=== PATIENT | female | born 1985 | race Caucasian/White ===

== ENCOUNTER 2017-01-12 11:43 | Inpatient (IN) | payer OTHER ==
[~2017-01-12] VITALS: Ht 160 cm; Wt 75.3 kg
[~2017-01-12 11:43] MED LIST: PREN1TAB48 PO
--- NOTE | 2017-01-12 11:45 | NUR ---
AAOX3, CAME TO ER C/O RIGHT SIDED CHEST PAIN RADIATES TO HER BACK, NO TRAUMA, ALSO C/O SOB X 2 HRS AGO. SKIN IS WARM AND NON DIAPHORETIC. RESP IS EVEN AND UNLABORED WITH NAD NOTED. PATIENT DESCRIBED THE PAIN LIKE A STABBING PAIN. PLACED ON MONITOR. AWAITING MD FOR EVAL.
--- NOTE | 2017-01-12 12:09 | NUR ---
IV ACCESSED TO RAC 20.
[2017-01-12] MEDS ORDERED: KETOROLAC TROMETHAMINE INJ 30 MG/ML VIAL ONE (12:22)
[2017-01-12] MEDS ORDERED: KETOROLAC TROMETHAMINE INJ 30 MG/ML VIAL IV ONE (12:30)
--- NOTE | 2017-01-12 12:45 | NUR ---
MACHINE SETTER AND REPAIRER AT BEDSIDE BLOOD SAMPLE COLLECTED
[2017-01-12 12:57] LABS: BASOPHILS % (AUTO) 0.4 % (0.0-2.0); EOSINOPHILS # (AUTO) 0.1 /CMM (0.0-0.7); EOSINOPHILS % (AUTO) 0.8 % (0.0-6.0); HEMATOCRIT 41 % (33-45); HEMOGLOBIN 13.6 g/dL (11.5-14.8); LYMPHOCYTES # (AUTO) 2.3 /CMM (0.8-4.8); LYMPHOCYTES % (AUTO) 23.3 % (20.0-44.0); MEAN CORPUSCULAR HEMOGLOBIN 26 PG (26.0-33.0); MEAN CORPUSCULAR HGB CONC 33 g/dl (31.0-36.0); MEAN CORPUSCULAR VOLUME 80 fL (82-100); MONOCYTES # (AUTO) 0.7 /CMM (0.1-1.30); MONOCYTES % (AUTO) 7.1 % (2.0-12.0); NEUTROPHILS # (AUTO) 6.6 /CMM (1.8-8.9); NEUTROPHILS % (AUTO) 68.4 % (43.0-81.0); PLATELET COUNT (AUTO) 277 /CMM (150-450); RDW COEFFICIENT OF VARIATION 11.8 (11.5-15.0); RED BLOOD CELL COUNT(AUTO) 5.19 MIL/uL (4.0-5.2); WHITE BLOOD COUNT (AUTO) 9.7 K/uL (4.3-11.0)
[2017-01-12 13:03] LABS: CALCIUM, SERUM 9.1 mg/dL (8.5-10.1); CARBON DIOXIDE 32 mmol/L (21-32); CHLORIDE 101 mmol/L (98-107); CREATININE 0.6 mg/dL (0.6-1.3); GFR 116 mL/min (>60); GLUCOSE 110 mg/dL (74-106); SODIUM SERUM 138 mmol/L (136-145); UREA NITROGEN, BLOOD 11 mg/dL (7-18)
[2017-01-12 13:06] LABS: INR 1.08 (0.87-1.13); PROTHROMBIN TIME 11.2 SECS (9.5-12.7)
[2017-01-12 13:09] LABS: ALANINE AMINOTRANSFERASE 27 U/L (12-78); ALBUMIN 3.9 g/dL (3.4-5.0); ALKALINE PHOSPHATASE 57 U/L (46-116); ASPARTATE AMINOTRANSFERASE 15 U/L (15-37); BILIRUBIN,DIRECT 0.1 mg/dL (0.0-0.2); BILIRUBIN,TOTAL 0.3 mg/dL (0.2-1.0); TOTAL PROTEIN, SERUM 7.6 g/dL (6.4-8.2)
[2017-01-12 13:11] LABS: TROPONIN I < 0.017 ng/mL (0.00-0.056)
[2017-01-12 13:39] LABS: D-DIMER 0.58 mg/L(FEU (0.17-0.50)
[2017-01-12] MEDS ORDERED: IV NS 0.9% 250 ML IV ONE (13:52)
[2017-01-12] MEDS ORDERED: IOHEXOL-350 100 ML VIAL IV ONE (13:52)
[2017-01-12] MEDS ORDERED: CT SWABBABLE VALVE TRANS SET 1 EA INFUS.SET MC ONE (13:53)
--- NOTE | 2017-01-12 14:46 | NUR ---
CALLED [facility], DR. NUÑEZ WAS PAGED
--- NOTE | 2017-01-12 14:46 | NUR ---
CALLED NURSING GAS TRUCK DRIVER FOR TELE BED
--- NOTE | 2017-01-12 14:51 | NUR ---
PATIENT GOING TO 119-1
[2017-01-12] MEDS ORDERED: RIVAROXABAN 10 MG TABLET PO STA (14:52)
--- NOTE | 2017-01-12 14:58 | NUR ---
GAVE REPORT TO [facility] TELE ROOM 119-1 DR NUÑEZ ADMITTING. PE DX. TRANSFER VIA ACLS PROTOCOL
--- NOTE | 2017-01-12 15:00 | NUR ---
RN ADMITTING NOTES: Rec'd report from RAMOS Duncan RN. Pt admitted under Telemetry (room 119/1), came in the unit via gurney accompanied by ER staff. Pt A/O x4 c/o SOB & chest tightness. Dr. Copeland made aware w/ orders & carried out. Placed on O2 at 2lpm/ NC, saturating at 99%. On telemonitor, SR w/ HR 68 bpm. Pt is ambulatory. Skin is intact. Has R AC G20, SL, flushed, patent & intact w/ no signs of infection / infiltration noted. Routine admission done. Pt oriented on room. Call light placed w/in reach. Bed kept low & in locked position. Needs attended. Will continue to monitor.
[2017-01-12 16:00] VITALS: BP 112/65
[2017-01-12] MEDS ORDERED: ONDANSETRON HCL/PF 4 MG/2 ML VIAL IVP PRN (16:30)
[2017-01-12] MEDS ORDERED: MAGNESIUM HYDROXIDE 30 ML UDC PO PRN (16:30)
[2017-01-12] MEDS ORDERED: ACETAMINOPHEN 325 MG TABLET PO PRN (16:30)
[2017-01-12] MEDS ORDERED: MAG HYDROX/AL HYDROX/SIMETH 30 ML UDC PO PRN (16:30)
[2017-01-12] MEDS ORDERED: ZOLPIDEM TARTRATE 5 MG TABLET PO PRN (16:30)
[2017-01-12] MEDS ORDERED: Z GUARD REMEDY 2 OZ OINT TP PRN (16:30)
[2017-01-12] MEDS ORDERED: IV SET PRIMARY PUMP SET 1 EA INFUS.SET MC ONE (17:07)
[2017-01-12] MEDS: BLOOD SUGAR DIAGNOSTIC 1 EACH STRIP IN SCH ×2 (17:34→22:19)
[2017-01-12] MEDS: IV D5/0.45 NACL 1,000 ML IV PRN (17:34)
[2017-01-12] MEDS ORDERED: BLOOD SUGAR DIAGNOSTIC 1 EACH STRIP IN SCH (18:00)
--- NOTE | 2017-01-12 19:40 | NUR ---
ATOMIC PROCESS ENGINEER INITIAL NOTE PT RECEIVED IN BED WITH FAMILY AT BEDSIDE. A/O X4 AND ABLE TO MAKE NEEDS KNOWN. TELE- SINUS RHYTHM. ON ROOM AIR AND SATING WELL. IV SITE INTACT, CLEAN AND PATENT. IV FLUIDS RUNNING AND WELL TOLERATED. CALL LIGHT WITHIN REACH. WILL CONTINUE TO MONITOR.
--- NOTE | 2017-01-12 19:51 | NUR ---
RN CLOSING NOTES: No acute changes noted w/in shift. Needs attended. Kept well rested. Call light w/in reach. Endorsed to PM RN for MACEY.
[2017-01-12 19:57] LABS: APPEARANCE,URINE CLEAR (CLEAR); BILIRUBIN,URINE NEGATIVE (NEGATIVE); BLOOD, URINE NEGATIVE Ery/uL (NEGATIVE); COLOR,URINE YELLOW (YELLOW); KETONES,URINE NEGATIVE (NEGATIVE); LEUKOCYTE ESTERASE ,URINE NEGATIVE (NEGATIVE); NITRITE, URINE NEGATIVE (NEGATIVE); PROTEIN,URINE NEGATIVE (NEGATIVE); UGLUCOSE NEGATIVE (NEGATIVE); UROBILINOGEN,URINE 0.2 EU/dL (0.2)
[2017-01-12 20:00] VITALS: BP 119/69
[2017-01-13] VITALS (7 sets, daily range): BP systolic 110–122; BP diastolic 60–78
[2017-01-13] MEDS: HYDROCODONE/APAP 5/325MG 1 EACH TABLET PO PRN ×3 (01:50→22:30)
[2017-01-13] MEDS: IV D5/0.45 NACL 1,000 ML IV PRN ×2 (06:38→21:23)
[2017-01-13] MEDS: BLOOD SUGAR DIAGNOSTIC 1 EACH STRIP IN SCH ×4 (06:38→21:22)
[2017-01-13 07:04] LABS: BASOPHILS % (AUTO) 0.3 % (0.0-2.0); EOSINOPHILS # (AUTO) 0.1 /CMM (0.0-0.7); EOSINOPHILS % (AUTO) 0.9 % (0.0-6.0); HEMATOCRIT 39 % (33-45); HEMOGLOBIN 12.9 g/dL (11.5-14.8); LYMPHOCYTES % (AUTO) 28.5 % (20.0-44.0); MEAN CORPUSCULAR HEMOGLOBIN 27 PG (26.0-33.0); MEAN CORPUSCULAR HGB CONC 33 g/dl (31.0-36.0); MEAN CORPUSCULAR VOLUME 81 fL (82-100); MONOCYTES # (AUTO) 0.6 /CMM (0.1-1.30); MONOCYTES % (AUTO) 5.7 % (2.0-12.0); NEUTROPHILS # (AUTO) 6.9 /CMM (1.8-8.9); NEUTROPHILS % (AUTO) 64.6 % (43.0-81.0); PLATELET COUNT (AUTO) 278 /CMM (150-450); RDW COEFFICIENT OF VARIATION 13.1 (11.5-15.0); RED BLOOD CELL COUNT(AUTO) 4.87 MIL/uL (4.0-5.2); WHITE BLOOD COUNT (AUTO) 10.7 K/uL (4.3-11.0)
--- NOTE | 2017-01-13 07:20 | NUR ---
ADMINISTRATIVE VOLUNTEER CLOSING NOTE PT REMAINED STABLE DURING SHIFT. ALL NEEDS ATTENDED TO PROMPTLY. CALL LIGHT WITHIN EASY REACH AT ALL TIMES. WILL ENDORSE TO NEXT SHIFT FOR MACEY.
[2017-01-13 07:27] LABS: ALBUMIN 3.3 g/dL (3.4-5.0); BILIRUBIN,TOTAL 0.2 mg/dL (0.2-1.0); CALCIUM, SERUM 8.4 mg/dL (8.5-10.1); CREATININE 0.6 mg/dL (0.6-1.3); MAGNESIUM 1.9 mg/dL (1.8-2.4); PHOSPHORUS 4.5 mg/dL (2.5-4.9); TOTAL PROTEIN, SERUM 6.7 g/dL (6.4-8.2)
--- NOTE | 2017-01-13 07:30 | NUR ---
RN NOTES RECEIVED PT RESTING IN BED COMFORTABLY, AWAKE ALERT ORIENTEDX4 ABLE TO COMMUNICATE NEEDS. SR ON TELE MONITOR, PT VERBALIZED SHE HAS CHEST PAIN 7/10 BUT PREFERS TO TAKE NORCO IN A LITTLE BIT. ONGOING IVF D51/F NS@75ML/HR INFUSING ON R AC. REMINDED TO USE CALL LIGHT NEEDED, SAFETY MAINTAINED, NEEDS ATTENDED. CALL LIGHT WITHIN REACH, WILL CONTINUE TO MONITOR
[2017-01-13] MEDS: PANTOPRAZOLE 40 MG TABLET.DR PO SCH (08:32)
--- NOTE | 2017-01-13 10:03 | NUR ---
RN NOTES PT HAS C/O CHEST PAIN PS 04/10, AND PT IS REQUESTING IF SHE CAN HAVE A SHOWER. CALLED DR NUÑEZ, SPOKE WITH DR NUÑEZ, REPORTED PT HAVING CHEST PAIN AND REQUEST TO SHOWER. PER MD PT OK TO SHOWER, AND MORPHINE 2MG Q6H PRN. ORDERS READ BACK NOTED AND CARRIED OUT.
[2017-01-13] MEDS ORDERED: MORPHINE SULFATE INJ 2 MG/ML DISP.SYRIN IV PRN (10:30)
[2017-01-13] MEDS: RIVAROXABAN 10 MG TABLET PO SCH (16:39)
--- NOTE | 2017-01-13 19:15 | NUR ---
RN CLOSING NOTES: No acute changes noted w/in shift. Needs Addressed. pt ambulated per Md order to the shower without issue. Call light w/in reach. Endorsed to PM RN for Continuation of care.
--- NOTE | 2017-01-13 20:00 | NUR ---
AIRPORT RAMP SUPERVISOR NOTES RECEIVED PT IN BED, AWAKE, A/O X4. FAMILY AT BEDSIDE. TELE READS SR AT 90 BPM. ON ROOM AIR, RITA WELL. PT IS AMBULATORY, DENIES PAIN. RAC 20G IV, RUNNING D5 1/2 NS AT 75 ML/HR. CALL LIGHT WITHIN REACH. ALL NEEDS MET.
--- NOTE | 2017-01-13 23:53 | NUR ---
RESEARCH MANUFACTURING OPERATOR NOTES RECEIVED CONTINUITY OF CARE REPORT FROM BLACK
[2017-01-14] VITALS: BP 104/60
[2017-01-14 06:00] VITALS: BP 102/65
[2017-01-14] MEDS: HYDROCODONE/APAP 5/325MG 1 EACH TABLET PO PRN (06:35)
[2017-01-14] MEDS: BLOOD SUGAR DIAGNOSTIC 1 EACH STRIP IN SCH ×2 (06:42→12:35)
--- NOTE | 2017-01-14 07:10 | NUR ---
PREDICTIVE MAINTENANCE TECHNICIAN CLOSING NOTES NO SIGNIFICANT CHANGES OVERNIGHT. DENIES SOB. ON ROOM AIR. IVF RUNNING. C/O 03/10 RIGHT CHEST PAIN, NON-RADIATING, PRN NORCO GIVEN ORDERED. SIDE RAILS UP AND LOCKED. BED KEPT AT LOWEST POSITION. CALL LIGHT KEPT WITHIN EASY REACH. WILL ENDORSE CONTINUITY OF CARE TO AM NURSE.
[2017-01-14] MEDS ORDERED: PANTOPRAZOLE 40 MG TABLET.DR PO SCH (07:30)
--- NOTE | 2017-01-14 07:30 | NUR ---
RN NOTES RECEIVED PATIENT IN BED ASLEEP WITH BREATHING NORMAL, EVEN AND UNLABORED. NO SOB NOTED. NO ACUTE DISTRESS NOTED. DENIES ANY PAIN OR DISCOMFORT. TELE MONITOR REVEALS SR, HR=80. IV RAC 20G IS PATENT AND INTACT, RUNNING IVF PER ORDER. KEPT CLEAN, DRY AND COMFORTABLE. ALL NEEDS ATTENDED. SAFETY MEASURE OBSERVED. CALL LIGHT WITH IN REACH, WILL CONT TO MONITOR.
[2017-01-14 08:00] VITALS: BP 101/63
[2017-01-14] MEDS: PANTOPRAZOLE 40 MG TABLET.DR PO SCH (08:27)
[2017-01-14 12:00] VITALS: BP 107/69
[2017-01-14 16:00] VITALS: BP 112/75
[2017-01-14] MEDS: RIVAROXABAN 10 MG TABLET PO SCH (17:10)
--- NOTE | 2017-01-14 17:25 | NUR ---
RN NOTES PATIENT DISCHARGED IN STABLE CONDITION WITH BREATHING NORMAL, EVEN AND UNLABORED. NO SOB NOTED. NO ACUTE DISTRESS NOTED. DENIES ANY PAIN OR DISCOMFORT. DISCHARGE INSTRUCTION GIVEN WITH FEEDBACK. UNDERSTOOD WELL. PATIENT LEFT WITH MASTER FRIEND IN STABLE CONDITION.
[2017-01-16 02:54] LABS: *CARD ANTI-CARDIOLIPIN AB IgG <9 GPL U/mL (0-14); *CARD ANTI-CARDIOLIPIN AB IgM 9 MPL U/mL (0-12)
[2017-01-16 08:29] LABS: *ANTITHROMBIN III AG 92 % (72-124); *DILUTE PROTHROMBIN TIME (dPT) 66.7 sec (0.0-55.0); *THROMBIN TIME 17.2 sec (0.0-20.9); *dPT CONFIRM RATIO 0.96 Ratio (0.00-1.40); *dRVVT 106.5 sec (0.0-47.0); ANTITHROMBIN III ACTIVITY 140 % (75-135); FACTOR VIII ACTIVITY 84 % (57-163); PROTEIN C ACTIVITY 92 % (73-180); PROTEIN S ACTIVITY 235 % (63-140)
== END 2017-01-14 17:24 | disposition home or self-care (01) | DRG 134 ==
LOC: ER 11:45 → TELE1 15:10
PROVIDERS: ADMIT Internal Medicine; ATTEND Internal Medicine
DX: I26.99 Other pulmonary embolism without acute cor pulmonale (principal); D68.9 Coagulation defect, unspecified; D68.59 Other primary thrombophilia; R07.81 Pleurodynia; K21.9 Gastro-esophageal reflux disease without esophagitis
CPT/HCPCS: 36415; 71010-TC; 80048-TC; 80053-TC; 80061-TC; 80076-TC; 81000-TC; 81240; 81241; 82962-TC; 83090; 83735-TC; 84100-TC; 84443-TC; 84484-TC; 84703-TC; 85025-TC; 85240; 85300; 85301; 85303; 85378-TC; 85385-TC; 85613; 85652-TC; 85670; 85705; 85730-TC; 85732; 86147; 87081-TC; 87086-TC; 93307-TC; 93970-TC; A4606; J1885; J3490; J7050; Q9967; Z7610

== ENCOUNTER 2017-01-16 21:35 | Emergency (ER) | payer OTHER ==
[~2017-01-16] VITALS: Ht 160 cm; Wt 75.3 kg
--- NOTE | 2017-01-16 21:45 | NUR ---
TO BED 3 AMBULATORY C/O BLE PAIN SINCE THIS MORNING. PT REPORTS HX. OF PULMONARY EMBOLISM AND WAS DISCHARGED FROM HERE ON FRIDAY. PT AAOX4 NO ACUTE DISTRESS NOTED, RESP EVEN AND UNLABORED. PENDING ER PATIENCE ASHRAF.
--- NOTE | 2017-01-16 21:53 | NUR ---
ER MD AT BEDSIDE TO EVAL PT WITH ORDERS RECEIVED.
--- NOTE | 2017-01-16 22:15 | NUR ---
URINE SAMPLE COLLECTED AND SENT TO LAB.
--- NOTE | 2017-01-16 22:17 | NUR ---
BLOOD DRAWN BY ANNEALING FURNACE TENDER.
[2017-01-16 22:25] LABS: BASOPHILS % (AUTO) 0.2 % (0.0-2.0); EOSINOPHILS # (AUTO) 0.1 /CMM (0.0-0.7); EOSINOPHILS % (AUTO) 1.2 % (0.0-6.0); HEMATOCRIT 41 % (33-45); HEMOGLOBIN 13.3 g/dL (11.5-14.8); LYMPHOCYTES # (AUTO) 3.2 /CMM (0.8-4.8); LYMPHOCYTES % (AUTO) 32.1 % (20.0-44.0); MEAN CORPUSCULAR HEMOGLOBIN 26 PG (26.0-33.0); MEAN CORPUSCULAR HGB CONC 32 g/dl (31.0-36.0); MEAN CORPUSCULAR VOLUME 80 fL (82-100); MONOCYTES # (AUTO) 0.6 /CMM (0.1-1.30); MONOCYTES % (AUTO) 6.6 % (2.0-12.0); NEUTROPHILS # (AUTO) 5.9 /CMM (1.8-8.9); NEUTROPHILS % (AUTO) 59.9 % (43.0-81.0); PLATELET COUNT (AUTO) 281 /CMM (150-450); RDW COEFFICIENT OF VARIATION 12.8 (11.5-15.0); RED BLOOD CELL COUNT(AUTO) 5.12 MIL/uL (4.0-5.2); WHITE BLOOD COUNT (AUTO) 9.8 K/uL (4.3-11.0)
[2017-01-16 22:35] LABS: CALCIUM, SERUM 9.1 mg/dL (8.5-10.1); CREATININE 0.6 mg/dL (0.6-1.3); POTASSIUM 3.9 mmol/L (3.5-5.1)
[2017-01-16 22:39] LABS: INR 1.23 (0.87-1.13); PROTHROMBIN TIME 13.3 SECS (9.5-12.7)
[2017-01-16 22:41] LABS: ALBUMIN 3.9 g/dL (3.4-5.0); BILIRUBIN,TOTAL 0.2 mg/dL (0.2-1.0); TOTAL PROTEIN, SERUM 7.7 g/dL (6.4-8.2)
--- NOTE | 2017-01-16 23:26 | NUR ---
SEED DISTRICT SALES MANAGER AT BEDSIDE FOR DUPLEX.
--- NOTE | 2017-01-17 00:05 | NUR ---
Patient discharged to home in stable condition. Written and verbal after care instructions given. Patient verbalizes understanding of instruction. ambulatory with a steady gait noted.
[2017-01-17 00:06] VITALS: BP 124/63
== END 2017-01-17 00:07 | disposition home or self-care (01) ==
LOC: ER 21:35
DX: M79.605 Pain in left leg (principal); M79.604 Pain in right leg; Z86.711 Personal history of pulmonary embolism
CPT/HCPCS: 36415; 80048-TC; 80076-TC; 84703-TC; 85025-TC; 85378-TC; 85610-TC; 93970-TC; A4606; Z7610

== ENCOUNTER 2017-03-22 13:02 | Emergency (ER) | payer OTHER ==
[~2017-03-22] VITALS: Ht 162.6 cm; Wt 76.2 kg
--- NOTE | 2017-03-22 13:15 | NUR ---
PT TO ER BED 09 C/O SHARP LIKE RT SIDED CHEST PAIN X 5 DAYS NOW. PT STATES HX OF PE. GOWNED AND PLACED ON MONITOR. AWAITING MD DUGAN.
--- NOTE | 2017-03-22 13:31 | NUR ---
DR PRASAD AT BEDSIDE FOR EVAL.
[2017-03-22 14:06] LABS: INR 1.51 (0.87-1.13)
--- NOTE | 2017-03-22 15:35 | NUR ---
Patient discharged to home in stable condition. Written and verbal after care instructions given. Patient verbalizes understanding of instruction.
[2017-03-22 15:37] VITALS: BP 126/74
== END 2017-03-22 15:37 | disposition home or self-care (01) ==
LOC: ER 13:05
DX: R07.89 Other chest pain (principal); T45.515A Adverse effect of anticoagulants, initial encounter; Z79.01 Long term (current) use of anticoagulants; Z86.711 Personal history of pulmonary embolism; Y92.89 Other specified places as the place of occurrence of the external cause
CPT/HCPCS: 36415; 71010; 85730; 93005; 99285; A4606; Z7610

== ENCOUNTER 2019-07-30 11:02 | Emergency (ER) | payer OTHER ==
[~2019-07-30] VITALS: Ht 162.6 cm; Wt 78.0 kg
[2019-07-30 11:11] VITALS: BP 126/79
[2019-07-30] MEDS ORDERED: LIDOCAINE HCL/MPF 1% 30 ML VIAL IJ ONE (11:24)
[2019-07-30] MEDS ORDERED: LIDOCAINE 1% INJ 50 ML MDV IJ ONE (11:30)
--- NOTE | 2019-07-30 11:48 | NUR ---
DR BENSON AT BEDSIDE.
== END 2019-07-30 12:04 | disposition home or self-care (01) ==
LOC: ER 11:11
DX: L03.012 Cellulitis of left finger (principal)
CPT/HCPCS: 10060; 99283; J3490